=== PATIENT | male | born 1990 | race Caucasian/White ===

== ENCOUNTER 2017-12-13 23:01 | Emergency (ER) | payer SELFPAY, OTHER ==
[2017-12-14] MEDS: OPHTHALMIC IRRIG SOLUTION 120 ML LEFT EYE (01:41)
== END 2017-12-14 02:17 | disposition home or self-care (01) ==
LOC: FTE 23:01
DX: S05.02XA Injury of conjunctiva and corneal abrasion without foreign body, left eye, initial encounter (principal); X58.XXXA Exposure to other specified factors, initial encounter; Y92.9 Unspecified place or not applicable
CPT/HCPCS: 99283